=== PATIENT | male | born 1985 | race Caucasian/White ===

== ENCOUNTER 2016-05-01 01:43 | Inpatient (IN) | payer MEDICAID ==
[~2016-05-01] VITALS: Ht 182.9 cm; Wt 97.8 kg
[2016-05-01] MEDS ORDERED: ALU/MAG/SIM 30 ML UDC PO PRN (05:40)
[2016-05-01] MEDS ORDERED: DIPHENHYDRAMINE 50 MG CAP PO PRN (05:40)
[2016-05-01] MEDS ORDERED: LORAZEPAM 2 MG/ML VIAL IM PRN (05:40)
[2016-05-01] MEDS ORDERED: DIPHENHYDRAMINE 50 MG/ML VIAL IM PRN (05:40)
[2016-05-01] MEDS ORDERED: MAG HYDROX 30 ML UDC PO PRN (05:40)
[2016-05-01] MEDS ORDERED: HALOPERIDOL 5 MG TAB PO PRN (05:40)
[2016-05-01] MEDS ORDERED: ACETAMINOPHEN 325 MG TAB PO PRN (05:40)
[2016-05-01] MEDS ORDERED: TRAZODONE 50 MG TAB PO PRN (05:40)
[2016-05-01] MEDS ORDERED: LORAZEPAM 2 MG TAB PO PRN (05:40)
[2016-05-01] MEDS ORDERED: HALOPERIDOL 5 MG/ML VIAL IM PRN (05:40)
[2016-05-01 05:47] VITALS: BP_SYST 138; RESP 20; TEMP 97.7; Ht 182.9 cm; Wt 97.8 kg
[2016-05-01 07:41] VITALS: BP_SYST 135; RESP 18; TEMP 98.9
[2016-05-01] MEDS: VENLAFAXINE XR 75 MG CAP PO SCH (12:25)
[2016-05-01] MEDS: SERTRALINE 50 MG TAB PO SCH (12:25)
[2016-05-01] MEDS: NICOTINE 21 MG/24 HR TRANSDERM SCH (12:25)
[2016-05-01 19:00] VITALS: BP_SYST 138; RESP 18; TEMP 98.2
[2016-05-02] MEDS: VENLAFAXINE XR 75 MG CAP PO SCH (08:18)
[2016-05-02] MEDS: SERTRALINE 50 MG TAB PO SCH (08:18)
[2016-05-02] MEDS: NICOTINE 21 MG/24 HR TRANSDERM SCH (08:18)
[2016-05-02 09:28] VITALS: BP_SYST 142; RESP 18; TEMP 98.7
[2016-05-02] MEDS ORDERED: LISINOPRIL 20 MG TAB PO ONE (13:50)
[2016-05-02 19:00] VITALS: BP_SYST 142; RESP 16; TEMP 98.7
[2016-05-03 07:37] VITALS: BP_SYST 136; RESP 16; TEMP 97.5
[2016-05-03] MEDS: VENLAFAXINE XR 75 MG CAP PO SCH (08:46)
[2016-05-03] MEDS: NICOTINE 21 MG/24 HR TRANSDERM SCH (08:46)
[2016-05-03] MEDS: SERTRALINE 50 MG TAB PO SCH (08:46)
[2016-05-03 08:50] VITALS: BP_SYST 136; RESP 16; TEMP 97.5
[2016-05-03] MEDS ORDERED: LISINOPRIL 20 MG TAB PO SCH (09:00)
[2016-05-03 11:28] VITALS: BP_SYST 136; RESP 16; TEMP 97.5
== END 2016-05-03 13:20 | disposition home or self-care (01) | DRG 885 ==
LOC: ENRESERVTM → ENRESERVDT → EEVIPCON 01:43 → ER 01:43 → EMR 04:57 → PSY 05:21
PROVIDERS: ADMIT Psychiatry & Neurology Psychiatry; ATTEND Psychiatry & Neurology Psychiatry
DX: F33.2 Major depressive disorder, recurrent severe without psychotic features (principal); D72.829 Elevated white blood cell count, unspecified; F34.1 Dysthymic disorder; M79.605 Pain in left leg; M79.604 Pain in right leg; R91.1 Solitary pulmonary nodule; F12.20 Cannabis dependence, uncomplicated; M77.9 Enthesopathy, unspecified; M70.80 Other soft tissue disorders related to use, overuse and pressure of unspecified site; Y93.01 Activity, walking, marching and hiking; Z59.0 Homelessness; F17.210 Nicotine dependence, cigarettes, uncomplicated
CPT/HCPCS: 36415; 71010; 80053; 80307; 80320; 80329; 81001; 82550; 84439; 84443; 85025